=== PATIENT | male | born 1970 | race Caucasian/White ===

== ENCOUNTER 2022-07-20 05:37 | Inpatient (IN) | payer OTHER, SELFPAY ==
[2022-07-13 06:09] VITALS: BP 115/76; PULSE 66; RESP 16; TEMP 36.3; O2SAT 100; BMI 26.3
[2022-07-13] MEDS: Lactated Ringers 1,000 ML 15 ML IV (06:28)
[2022-07-20] VITALS (11 sets, daily range): BP systolic 103–125; BP diastolic 62–82; PULSE 60–92; RESP 16–18; TEMP 36.6–37.6; O2SAT 89–100; BMI 25.7
[2022-07-20] MEDS: Lactated Ringers 1,000 ML 15 ML IV ×2 (06:18→13:10)
--- NOTE | 2022-07-20 07:30 | DISC_PTH ---
PATIENT: MAGNUS SIMPSON LOC: [facility]3 U#:[id number] AGE/SX: 51/M ROOM: NH318 RE07/20/[address]: Dr. Arsenio Sigala DO : 1970 BED: 1 DIS: 07/21/2022 SPEC #: [id number] RECD: 07/20/22 13:54 STATUS: ROSIO REOtoniel #: [id number] BERTHA: 07/20/22 07:[address]: Arsenio Sigala DEPT: SURGICAL PATHOLOGY RECD BY: Radha Garcia ENTERED: 07/20/22 13:59 SP TYPE: DISC OTHR DR: ALEXANDER Brian Tissues: Intervertebral disc, NOS Procedures: Surgery Specimen Level III HEADER OPERATION: L5-S1 posterior lumbar interbody fusion PRE-OP DIAGNOSIS: DDD, spinal stenosis, spondylopathy TISSUE SUBMITTED: Disc MICROSCOPIC DIAGNOSIS Intervertebral disc, L5-S1, discectomy: Fragments of intervertebral disc with degenerative change. Minute fragments of bone with no pathologic change. AM:rajwinder 07/21/2022 MICROSCOPIC DESCRIPTION Slides are reviewed. GROSS DESCRIPTION Received in fixative is one container labeled with the patient's name and designated disc. The specimen consists of multiple irregular fragments of kevin, indurated tissue that in aggregate measure 3.0 x 2.5 x 0.3 cm. The specimen is totally submitted in one cassette. / SJ:rajwinder 07/20/2022 TC:5 CPT: 66158
--- NOTE | 2022-07-20 07:30 | RAD_ITS ---
EXAMINATION: Intraoperative lumbar fusion fluoroscopy. INDICATION: L5/S1 POSTERIOR INTERBODY FUSIN,DECOMPRESSION EXAMINATION/TECHNIQUE: 6 spot intraoperative films were provided for interpretation. Total Fluoroscopic Time: 115.1 seconds AND number of Fluoroscopic Images: 6 Radiation dosage index: 37.24 mGy COMPARISON: None. FINDINGS: Limited AP and lateral intraoperative fluoroscopic images of the lumbar spine were obtained. There is placement of posterior transpedicular approach lumbar fusion hardware and intervertebral disc spacers at the L5-S1 level. There are surgical clips in the soft tissues overlying the lower lumbar spine. RAD/Lumbar Spine 2 or 3 Views IMPRESSION: Intraoperative fluoroscopic placement of lumbar fusion hardware at the L5-S1 level. Please see intraoperative report for detailed findings. Electronically Signed: Arthur Underwood DO at 11:38 EDT ,
[2022-07-20] MEDS: Cefazolin 2 GM in 0.9% Normal Saline 100 ML IV (07:54)
--- NOTE | 2022-07-20 07:54 | PCM.OPRPT ---
Problems Associated Problem List Diagnoses (1) Lumbar stenosis: Report of Operation Date of Procedure: 07/20/22 Pre-Operative Diagnosis: 1. Lumbar stenosis L5-S1 with spondylosis 2. Lumbar degenerative disc disease L5-S1 Post-Operative Diagnosis: 1. Lumbar stenosis L5-S1 with spondylosis 2. Lumbar degenerative disc disease L5-S1 Surgery/Procedure Performed:: 1. L5-S1 posterior lumbar interbody fusion 2. Insertion of intervertebral biomechanical device x1 3. Structural allograft for spinal fusion 4. L5 bilateral laminectomies, foraminotomies, facetectomies, decompression of bilateral nerve roots 5. S1 bilateral laminectomies, foraminotomies, facetectomies, decompression of bilateral nerve roots 6. L5-S1 posterolateral fusion 7. Pedicle screw fixation 8. Local autograft for spinal fusion 9. Neuro monitoring bilateral upper and bilateral lower extremities Description of Surgical Findings:: The patient is a 51-year-old male with intractable back and leg pain. Image studies confirm the above diagnoses. He has failed conservative treatment to include medications physical therapy and injections. The patient opted for operative intervention understanding the risk to include but not limited to infection, bleeding, damage to nerves arteries and veins, possibility of spinal fluid leak, nonunion, hardware failure, continued pain, need for further surgery, deep vein thrombosis, pulmonary embolism, heart attack, risk of stroke or The patient was identified in the preoperative holding area. There he received preoperative IV antibiotics Ancef and was then transferred to the operative suite. Once in the operative suite after general endotracheal anesthesia was established the patient was transferred to the [place] operating table in the prone position. All bony prominences were padded accordingly. The lumbar spine was prepped and draped in a standard surgical fashion. Bear hugger's were not turned on until the drapes were placed and sealed with Ioban. A midline incision was made and taken down to the lumbodorsal fascia. The fascia was divided and subperiosteal dissection was taken down to the level of the transverse processes and sacral ala of L5 and S1 bilaterally. Deep retractors were placed. A bone scalpel was used to make cuts in the lamina of L5 bilaterally and then a series of Kerrisons and rongeurs were used removing the spinous process and lamina at L5 and S1. Then facetectomies of greater than 50% were performed as well as foraminotomies decompressing the bilateral nerve roots. Given the severity of the stenosis I needed to perform wide bilateral laminectomies and near complete facetectomies in order to decompress the neural elements thus creating instability necessitating the fusion. The nerve roots and dura were identified and retracted medially. A knife was utilized to perform an annulotomy at L5-S1. Endplate elevator, curettes and pituitaries were used to remove disc material. Endplates were prepared with a rasp. An appropriate sized intervertebral peek cage device measuring 11 mm was packed with morselized cancellous allograft and impacted into position completing the posterior lumbar interbody fusion at the L5-S1 level. Starting points for the pedicle screws were found at the junction of the superior articular process and transverse processes and sacral ala of L5 and S1. A power bur was used for the starting points. Pedicle probes were placed bilaterally and then 6.5 x 55 mm screws were placed bilaterally at L5 and 6.5 x 45 mm screws were placed bilaterally at S1. The screws were tested with intraoperative neurophysiologic monitoring and tested within normal limits. Connecting rods were then applied and secured with set screws. I then proceeded with the posterior lateral fusion. This was accomplished by decorticating the transverse processes and sacral ala bilaterally at L5 and S1. This decorticated bone was then bridged with local autograft from the decompression as well as morselized cancellous allograft thus completing the posterolateral fusion at L5-S1. The incision was then thoroughly irrigated. Tisseel was placed over the dura as a hemostatic agent. A deep drain was placed. The fascia was closed with #1 Vicryl, subcutaneous with 2-0 Vicryl and skin with 2-0 nylon. A sterile dressing was applied with 4 x 4's ABD and tape. Sponge instrument and needle counts were correct at the end of the case. Neurophysiologic monitoring was maintained at baseline throughout the duration of the case. The patient was extubated and taken to the PACU without incident. Surgeon: Arsenio Sigala Type of Anesthesia: General Drains: Hemovac Estimated Blood Loss (mL): 300 cc Fluids Replaced: 3000 cc Grafts/Implants Used: Unified spine, [place]os Complications None Admit VTE Documentation VTE Present on Admission: No
--- NOTE | 2022-07-20 07:54 | PCM.PN.ORT ---
Subjective Subjective The patient was seen and examined postoperatively. He is lying in bed resting comfortably. His pain is controlled. He has no complaints including acute numbness tingling or weakness Objective Data Objective Data Vital Signs: Vital Signs Temp Pulse Resp BP Pulse Ox O2 Del Method 98.1 F 62 16 120/70 96 Room Air 07/20/22 06:05 07/20/22 06:05 07/20/22 06:05 07/20/22 06:05 07/20/22 06:05 07/20/22 06:05 Oxygen Delivery Method Room Air Weight: 189 lb 9.561 oz Body Mass Index (BMI) 25.7 Physical Exam Const alert, oriented x3 and no apparent distress General Appearance: cooperative, comfortable and well kempt HEENT normocephalic and head/scalp atraumatic Eyes EOMs intact bilaterally and conjunctivae normal Neck full ROM General: normal visual inspection Chest inspection of chest normal and palpation of chest normal Resp normal respiratory effort Cardio regular rate, regular rhythm and peripheral pulses 2+ throughout GI soft to palpation, non-tender and non-distended Back/Spine Back/Spine Narrative: Dressing clean dry and intact. Drain in place and functioning with small amount of serosanguineous fluid present Cervical Spine: cervical ROM normal Thoracic Spine / Upper Back: normal to inspection Lumbar Spine / Lower Back: normal to inspection Extremity normal to inspection, full ROM, normal capillary refill, no clubbing, cyanosis or edema and no calf tenderness Skin no rashes or lesions noted General Skin Exam: no breakdown Neuro oriented x3, CN's II-XII intact bilaterally, moves all extremities, no focal motor deficits, no sensory deficits noted and deep tendon reflexes 2+ bilaterally Motor Exam: muscle tone normal throughout Assessment & Plan Assessment/Plan (1) Lumbar stenosis: PLAN: Okay to admit to floor See postop orders Discharge planning, likely home tomorrow
--- NOTE | 2022-07-20 07:54 | PCM.DC.SUM ---
Providers Date of Admission: 07/20/22 Primary Care Physician: ALEXANDER Brian Hospitalist for medical management Reason For Visit: POSTERIOR LUMBAR INTERBODY FUSION 1 LEVEL Medications at Discharge Home Medications colestipol 5 gram oral granules 5 g PO BID DIARRHEA 07/05/22 cyclobenzaprine 10 mg tablet 10 mg PO TID PRN Spasms 07/05/22 fiber 1 cap PO DAILY DIARRHEA 07/05/22 lisinopril 20 mg tablet 20 mg PO DAILY BP 07/05/22 hydrocodone-acetaminophen 5-325mg 5mg-325mg 1 tab PO Q6H 7 days #28 TABLETS 07/20/22 Hospital Course Operations - (L5-S1 posterior lumbar interbody fusion, decompression, posterior spinal fusion with instrumentation, use of allograft) Summary of Care Provided Minutes Spent on Discharge: 15 Hospital Course: The patient is a 51-year-old male who underwent L5-S1 posterior lumbar interbody fusion, decompression, posterior spinal fusion with instrumentation, use of allograft on 07/20/2022. He was subsequently admitted. The hospitalist was consulted for medical management. The patient progressed well. His pain was well controlled and he was mobilizing well. His drain was pulled on postoperative day 1. No significant medical issues were reported. He was subsequently discharged home on 07/21/2022 to follow-up with Dr. Sigala in 3 weeks Physical Exam Narrative Seen and examined. Lying in bed resting comfortably. Pain minimal. No complaints including numbness tingling or weakness. Const alert, oriented x3 and no apparent distress General Appearance: cooperative, comfortable and well kempt HEENT normocephalic and head/scalp atraumatic Eyes EOMs intact bilaterally and conjunctivae normal Neck full ROM General: normal visual inspection Chest inspection of chest normal and palpation of chest normal Resp normal respiratory effort Effort and Inspection: able to speak in complete sentences Cardio regular rate and peripheral pulses 2+ throughout GI soft to palpation, non-tender and non-distended Back/Spine Back/Spine Narrative: Dressing clean dry and intact. Incision well approximated with interrupted sutures in place. No tenderness erythema drainage or fluctuance. Drain pulled Cervical Spine: cervical ROM normal Thoracic Spine / Upper Back: normal to inspection Lumbar Spine / Lower Back: normal to inspection Extremity normal to inspection, full ROM, normal capillary refill, no clubbing, cyanosis or edema and no calf tenderness Skin no rashes or lesions noted General Skin Exam: no breakdown Neuro Motor Exam: strength 5/5 throughout and muscle tone normal throughout Weight / BMI Weight Weight: 189 lb 9.561 oz Body Mass Index (BMI) 25.7 D/C Instructions Discharge Diet: No restrictions Additional Activity Instructions: Wear back brace at all times. No repetitive bending twisting or lifting greater than 10 pounds. Call your doctor if your incision/area has: Continuous Slow Oozing, Sudden Increased Bleeding, Increased Pain/ Swelling, Increased Redness, Foul Smelling Discharge and Swelling at the incision site Call your doctor if you observe: Fever of 101 or Higher, Coldness, Increased Pain, Numbness or Tingling, Change in Color, Inability to urinate, Inability to have a bowel movement, Using more than 1 pad per hour, Shortness of breath, Dizziness, Fainting spells, Swelling in the ankles, Chest pain, Prolonged hiccupping, Increased palpitations (irregular heartbeat), Calf discomfort and Uncontrolled pain Cleanse incision/area with: Do not get Incision Wet and Keep Dressing Clean & Dry Additional Dressing/Incision Instructions: Change dressing daily with iodine gauze and tape. Use waterproof dressing for shower Please Follow Up With: Arsenio Sigala DO When: 3 weeks Meaningful Use Info Meaningful Use Diagnoses (Choose all that apply): None applicable Discharge Plan Admission Admit Date/Time: 07/20/22 05:37 Attending Provider: Arsenio Sigala Primary Care Provider: Gabbie Kelly Consulting Providers: Yari Whitney ; Babs Rm Instructions Additional Instructions / Restrictions: 1. During your procedure, you received sedation through your IV. Please follow these instructions for the next 24 hours: Do not drive a motor vehicle, do not drink any alcoholic beverages, and do not sign any legal documents or make personal or business decisions. A responsible adult should stay with you at least 6 hours after the procedure. 2. Keep your surgical site/incision clean and the dressing dry and intact. You may use an ice pack at the surgical site to reduce any swelling or discomfort. 3. Monitor the incision site for any signs or symptoms of infection. Watch for redness, excessive swelling or drainage, or continued pain at the incision site after 3 days. Contact your physician immediately for a fever, chills or a temperature of 101.5? F or greater. 4. Take your medication exactly as prescribed by your physician. Do not attempt to wean yourself off any of your medications even though your pain is improving. This process needs to be carefully monitored by your doctor. Take any antibiotics prescribed exactly as directed and until they are gone. 5. Avoid stretching, bending, pulling, twisting or any sudden movements. Do not bend or twist at the waist. 6. No lifting greater than 5 pounds. 7. Do not operate a motor vehicle, equipment or a power tool while taking pain medication 8. Do not have any manipulation done by a chiropractor or any other physician without first consulting with the surgeon 9. Please contact our office if you are even scheduled for a CT scan or an MRI. 10. Please call us if you have any questions, problems or concerns. Discharge Orders/Prescriptions Prescriptions: New hydrocodone-acetaminophen 5-325 mg tablet 1 tab PO Q6H 7 Days Qty: 28 0RF Continued cyclobenzaprine 10 mg Tablet 10 mg PO TID PRN (Reason: Spasms) lisinopril 20 mg Tablet 20 mg PO DAILY fiber Capsule 1 cap PO DAILY colestipol 5 gram Granules 5 g PO BID Discontinued meloxicam [Mobic] 7.5 mg Tablet 7.5 mg PO DAILY Referrals / Follow Up: Arsenio Sigala DO [Med Staff - Active Staff] - Gabbie Kelly PA [Primary Care Provider] - Disposition Disposition (needs filled in before D/C Order can be placed): Home, Self Care
[2022-07-20] MEDS: Heparin 10,000 UNITS/10 ML Vial 10000 UNITS (08:42)
[2022-07-20] MEDS: THROMBIN (RECOMBINANT) 20,000 UNIT VIAL 20000 UNIT TOPICAL (10:10)
[2022-07-20] MEDS: Bupivacaine 0.25% 30 ML Vial (12:21)
--- NOTE | 2022-07-20 15:41 | PCM.PN.HOSP ---
Reason for Visit Reason for Visit: Diagnoses Spinal stenosis, lumbar region without neurogenic claudication (07/20/22) Subjective Subjective Postop consult for medical management after admission for lumbar stenosis L5-S1 spondylosis status post L5-S1 posterior lumbar interbody fusion, decompression, posterior spinal fusion with instrumentation, use of allograft. Patient seen in hospital room after surgery and reports feeling well overall, feels like he needs a dose of pain medication but has no other complaints. He is interested in knowing he can eat. No chest pain or shortness of breath Objective Data Objective Data Vital Signs: Vital Signs Temp Pulse Resp BP Pulse Ox O2 Del Method 97.9 F 85 16 111/65 99 Room Air 07/20/22 15:33 07/20/22 15:33 07/20/22 15:33 07/20/22 15:33 07/20/22 15:33 07/20/22 15:33 Oxygen Delivery Method Room Air Weight: 86 kg Body Mass Index (BMI) 25.7 Intake & Output: Intake and Output for Last 24 Hours 07/18/22 07/19/22 07/20/22 23:59 23:59 23:59 Intake Total 4110 / 4110 Output Total 1450 / 1450 Balance 2660 / 2660 Physical Exam Narrative General: Alert, oriented, no apparent distress HEENT: Atraumatic, normocephalic Eyes: Anicteric, normal conjunctiva, extraocular movements grossly intact Neck: Supple Respiratory: Clear to auscultation bilaterally, normal respiratory effort Cardiovascular: Regular rate and rhythm GI: Soft, nontender, nondistended Extremities: No edema Musculoskeletal: Resting comfortably in bed Neuro: No overt focal neurological deficits Skin: No rashes appreciated Psych: Cooperative Assessment & Plan Assessment/Plan (1) Lumbar stenosis: PLAN: Plan #Lumbar stenosis L5-S1 with spondylosis -L5-S1 posterior lumbar interbody fusion, decompression, posterior spinal fusion with instrumentation, use of allograft on 07/20 w/ Dr. Sigala -Doing well -Pain control -Management per primary -Likely home tomorrow if doing well #HTN -Well controlled presently on lisinopril -Continue current management #DVT ppx: Per discretion of primary Yari Whitney MD Charges/Coding Visit Charges Inpatient E&M: 11216 Subs Hosp L1
[2022-07-20] MEDS: Cefazolin 1 GM/50 ML BAG IV (16:18)
[2022-07-20] MEDS: Acetaminophen 500 MG Tablet 1000 MG PO ×2 (16:19→21:50)
[2022-07-20] MEDS: Ensure Surgery 237 ML LIQUID PO (17:51)
[2022-07-20] MEDS: oxyCODONE 5 MG Tablet PO (20:40)
[2022-07-21] MEDS: Cefazolin 1 GM/50 ML BAG IV (00:14)
[2022-07-21] MEDS: Morphine 4 MG/ML Syringe IV (00:18)
[2022-07-21] MEDS: 0.9% Saline Lock 10 ML Syringe IV (00:19)
[2022-07-21 00:24] VITALS: BP 106/62; PULSE 88; RESP 16; TEMP 36.9; O2SAT 99
[2022-07-21 05:03] VITALS: BP 93/66; PULSE 64; RESP 16; TEMP 36.8; O2SAT 98
[2022-07-21] MEDS: oxyCODONE 5 MG Tablet PO ×3 (05:04→15:02)
[2022-07-21] MEDS: Acetaminophen 500 MG Tablet 1000 MG PO ×2 (05:05→15:02)
[2022-07-21] MEDS: Colestipol 1 GM TABLET 5 GM PO (05:08)
[2022-07-21 07:35] VITALS: BP 97/73; PULSE 64; RESP 16; TEMP 36.7; O2SAT 98
[2022-07-21] MEDS: Ensure Surgery 237 ML LIQUID PO ×2 (07:48→11:38)
--- NOTE | 2022-07-21 09:07 | PCM.PN.HOSP ---
Reason for Visit Reason for Visit: Diagnoses Spinal stenosis, lumbar region without neurogenic claudication (07/20/22) Subjective Subjective Well this a.m., no significant complaints Objective Data Objective Data Vital Signs: Vital Signs Temp Pulse Resp BP Pulse Ox O2 Del Method 98.0 F 64 16 97/73 98 Room Air 07/21/22 07:35 07/21/22 07:35 07/21/22 07:35 07/21/22 07:35 07/21/22 07:35 07/21/22 07:35 Oxygen Delivery Method Room Air Weight: 86 kg Body Mass Index (BMI) 25.7 Intake & Output: Intake and Output for Last 24 Hours 07/19/22 07/20/22 07/21/22 23:59 23:59 23:59 Intake Total 4160 / 4160 221.25 / 221.25 Output Total 2375 / 3825 2730 / 2730 Balance 1785 / 335 -2508.75 / -2508.75 Physical Exam Narrative General: Alert, oriented, no apparent distress HEENT: Atraumatic, normocephalic Eyes: Anicteric, normal conjunctiva, extraocular movements grossly intact Neck: Supple Respiratory: Clear to auscultation bilaterally, normal respiratory effort Cardiovascular: Regular rate and rhythm GI: Soft, nontender, nondistended Extremities: No edema Musculoskeletal: Resting comfortably in bed Neuro: No overt focal neurological deficits Skin: No rashes appreciated Psych: Cooperative Assessment & Plan Assessment/Plan (1) Lumbar stenosis: PLAN: Plan #Lumbar stenosis L5-S1 with spondylosis -L5-S1 posterior lumbar interbody fusion, decompression, posterior spinal fusion with instrumentation, use of allograft on 07/20 w/ Dr. Sigala -Doing well -Pain control -Management per primary -Likely home tomorrow if doing well -07/20: Doing well #HTN -Well controlled presently on lisinopril -Continue current management #DVT ppx: Per discretion of primary Yari Whitney MD DISPO: Patient doing well, okay for discharge home from hospitalist perspective Charges/Coding Visit Charges Inpatient E&M: 50705 Subs Hosp L1
--- NOTE | 2022-07-21 09:15 | CASEMGMT ---
Addendum entered by Ca Mendes 07/21/22 10:36: Referral sent to [facility] at this time for FWW via careport. Original Note: RN SARA Assessment: Face to Face with pt for initial transition planning/care coordination assessment. RN CM introduced self and role at [facility], pt voices understanding and consents to assessment. Pt is A/O x4 and answers all questions appropriately at this time. Pt sitting up in chair in no distress. Care providers, pharmacy, and demographics verified/updated. Admitting Dx: posterior lumbar interbody fusion 1 level PCP:Robin Specialists: nilam Sigala; GI in Dr.M. Harris Preferred Pharmacy: [facility] Retail Insurance: [employer] Prescription Benefit: yes LNOK: Milagro Chavez, Living Arrangements: Pt lives with , 4 children and mother in law in a three story home with 2 steps to enter with a rail. Pt reports he was I in ADL's prior to surgery and denies concerns at home. Transportation: Pt drives self and denies concerns with transportation. Pt to transport him until he is able to drive again. DME/HHC/SNF: Pt has a shower bench, raised toilet seat. Pt is in need of a FWW. Pt denies hx of HHC or SNF stays. Pt states no concerns with going home at time of dc. Provided pt with a local in network list of DME companies verbally, pt chose [employer]. Pt states no further concerns/needs. CM to follow. Advised pt to ask CM if any further question/concerns/needs arise, voices understanding. Pt Goal: Home Plan: Home, FWW Message to Dr. Sigala for signature of FWW.
--- NOTE | 2022-07-21 11:38 | CASEMGMT ---
Social Work SW met with pt and discussed advance directives. Pt states he has not competed documents. Rack card with AD information provided to pt for review. CHARLIE Bosch
[2022-07-21 14:41] VITALS: BP 110/73; PULSE 96; RESP 16; TEMP 36.9; O2SAT 99
== END 2022-07-21 15:15 | disposition home or self-care (01) | DRG 455 ==
LOC: ACINP 08:13 → MS3 15:13
PROVIDERS: Admitting Provider Orthopaedic Surgery; Referring Provider Orthopaedic Surgery; Visit Provider Orthopaedic Surgery
PROC: 0SG00AJ Fusion of Lumbar Vertebral Joint with Interbody Fusion Device, Posterior Approach, Anterior Column, Open Approach (ICD-10-PCS; CPT 22630; principal; 2022-07-20 07:00)
DX: M48.061 Spinal stenosis, lumbar region without neurogenic claudication (principal); E66.3 Overweight; M46.96 Unspecified inflammatory spondylopathy, lumbar region; M46.98 Unspecified inflammatory spondylopathy, sacral and sacrococcygeal region; F17.220 Nicotine dependence, chewing tobacco, uncomplicated; M47.27 Other spondylosis with radiculopathy, lumbosacral region; I10 Essential (primary) hypertension; M47.26 Other spondylosis with radiculopathy, lumbar region; M51.36 Other intervertebral disc degeneration, lumbar region; M51.16 Intervertebral disc disorders with radiculopathy, lumbar region; Z71.3 Dietary counseling and surveillance; Z68.27 Body mass index [BMI] 27.0-27.9, adult; Z98.1 Arthrodesis status; Z79.899 Other long term (current) drug therapy; Z86.16 Personal history of COVID-19
CPT/HCPCS: 72100; 76000; 88304; 94668; 97162; 97530; 99406; C1713; J7120; A4216; J2405